=== PATIENT | male | born 1975 | race Two or more races ===

== ENCOUNTER 2016-12-10 20:04 | Inpatient (IN) | payer OTHER ==
[2016-12-10 21:58] VITALS: BMI 25.8
--- NOTE | 2016-12-10 22:15 | HP ---
COWS - Scale Resting Pulse: 1= NE 81-100 Sweatin= Chills/Flushing Restless Observation: 3= Extraneous Movement Pupil Size: 2= Moderately Dilated Bone or Joint Aches: 2= Severe Diffuse Aches Runny Nose/ Eye Tearin= Runny Nose/Eyes GI Upset > 30mins: 3= Vomiting/Diarrhea Tremor Observation: 2= Slight Tremor Visible Yawning Observation: 2= >3x During Session Anxiety or Irritability: 2=Irritable/Anxious Goose Flesh Skin: 0=Smooth Skin COWS Score: 20 CIWA Score - CIWA Score Nausea/Vomitin Muscle Tremors: 3 Anxiety: 3 Agitation: 2 Paroxysmal Sweats: 2 Orientation: 0-Oriented Tacttile Disturbances: 2-Mild Itch/Numbness/Burn Auditory Disturbances: 2-Mild Harshness/Frighten Visual Disturbances: 2-Mild Sensitivity Headache: 2-Mild CIWA-Ar Total Score: 21 Admission ROS BHS - HPI Chief Complaint: I NEED HELP TO STOP USING HEROIN ,ALCOHOL AND COCAINE Allergies/Adverse Reactions: Allergies Allergy/AdvReac Type Severity Reaction Status Date / Time fish derived [Fish derived] Allergy Mild Vomiting Verified 12/10/16 22:02 No Known Drug Allergies Allergy Verified 12/10/16 22:02 History of Present Illness: THIS 41 YEARS OLD MALE WITH HEROIN,ALCOHOL AND COCAINE DEPENDENCE,SEEKING DETOX, LAST TREATMENT IN 05/30 [facility] SEEN IN [facility] LAST NIGHT FOR HEADACHE STATED HAS CT DONE NEGATIVE NICOTINE DEPENDENCE HEPATITIS C WEIGHT LOS ANXIETY,DEPRESSION,INSOMNIA LONGEST PERIOD OF SOBRIETY 18 MONTHS Exam Limitations: No Limitations - Ebola screening Have you traveled outside of the country in the last 21 days: No (N) Have you had contact with anyone from an Ebola affected area: No Have you been sick,other than usual withdrawal symptoms: No Do you have a fever: No - Review of Systems Constitutional: Chills, Loss of Appetite, Malaise, Night Sweats, Changes in sleep, Unintentional Wgt. Loss EENT: reports: Tearing, Nose Congestion Respiratory: reports: No Symptoms reported Cardiac: reports: No Symptoms Reported GI: reports: Diarrhea, Nausea, Poor Appetite, Vomiting : reports: No Symptoms Reported Musculoskeletal: reports: Back Pain, Joint Pain, Muscle Pain, Joint Stiffness Integumentary: reports: Dryness Neuro: reports: Headache, Tremors Endocrine: reports: No Symptoms Reported Hematology: reports: No Symptoms Reported Psychiatric: reports: No Sypmtoms Reported, Judgement Intact, Mood/Affect Appropiate, Orientated x3 (INSOMNIA), Anxious, Depressed Patient History - Patient Medical History Hx Anemia: No Hx Asthma: No Hx Chronic Obstructive Pulmonary Disease (COPD): No Hx Cancer: No Hx Cardiac Disorders: No Hx Congestive Heart Failure: No Hx Hypertension: No Hx Hypercholesterolemia: No Hx Pacemaker: No HX Cerebrovascular Accident: No Hx Seizures: No Hx Dementia: No Hx Diabetes: No Hx Gastrointestinal Disorders: No Hx Liver Disease: No Hx Genitourinary Disorders: No Hx Sexually Transmitted Disorders: No Hx Renal Disease (ESRD): No Hx Thyroid Disease: No Hx Human Immunodeficiency Virus (HIV): No (LAST 2015 NEGATIVE) Hx Hepatitis C: Yes (2009) Hx Depression: Yes Hx Suicide Attempt: No Hx Bipolar Disorder: No Hx Schizophrenia: No - Patient Surgical History Past Surgical History: No Hx Neurologic Surgery: No Hx Cataract Extraction: No Hx Cardiac Surgery: No Hx Lung Surgery: Yes (R pneumothorax in [facility] in 2009) Hx Breast Surgery: No Hx Breast Biopsy: No Hx Abdominal Surgery: No Hx Appendectomy: No Hx Cholecystectomy: No Hx Genitourinary Surgery: No Hx Section: No Hx Orthopedic Surgery: No Anesthesia Reaction: No - PPD History Previous Implant?: Yes Documented Results: Negative w/o proof Implanted On Prior [facility] Admission?: Yes Date: 05/22/14 Results: 0 mm PPD to be Administered?: Yes - Smoking Cessation Smoking history: Current every day smoker Have you smoked in the past 12 months: Yes Aproximately how many cigarettes per day: 20 Cigars Per Day: 0 Hx Chewing Tobacco Use: No Initiated information on smoking cessation: Yes 'Breaking Loose' booklet given: 12/10/16 - Substance & Tx. History Hx Alcohol Use: Yes Hx Substance Use: Yes Substance Use Type: Alcohol, Cocaine, Heroin Hx Substance Use Treatment: Yes ([facility] 05/2014) - Substances Abused Heroin Route: Injection Frequency: Daily Amount used: 20 BAGS Age of first use: 30 Date of Last Use: 12/10/16 Alcohol Route: Oral Frequency: Daily Amount used: 1PINT OF VODKA/10 OF 24 OZS OF BEER Age of first use: 13 Date of Last Use: 12/10/16 Cocaine Route: Smoking Frequency: 1-2 times per week Amount used: 20$ Age of first use: 16 Date of Last Use: 12/09/16 Family Disease History - Family Disease History Family History: Denies Family Disease History: Diabetes: Father (alcoholic and diabetes ), Other: Father Admission Physical Exam [facility] - Vital Signs Vital Signs: Vital Signs - 24 hr 12/10/16 21:50 Temperature 98.0 F Pulse Rate 84 Blood Pressure 133/75 - Physical General Appearance: Yes: Moderate Distress, Tremorous, Irritable, Sweating HEENTM: Yes: Normal ENT Inspection, CHELSIE, Pharynx Normal Respiratory: Yes: Lungs Clear, Normal Breath Sounds, No Respiratory Distress, Surgical Scar (S/P PNEUMOTHORAX RIGHT) Neck: Yes: Within Normal Limits, Supple, Trachea in good position Breast: Yes: Within Normal Limits Cardiology: Yes: Within Normal Limits, Regular Rhythm, Regular Rate, S1, S2 Abdominal: Yes: Normal Bowel Sounds, Non Tender, Soft, Organomegaly Genitourinary: Yes: Within Normal Limits Back: Yes: Muscle Spasm Musculoskeletal: Yes: full range of Motion, Back pain, Muscle Pain Extremities: Yes: Within Normal Limits, Normal Range of Motion, Tremors Neurological: Yes: 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 intact, Alert, Motor Strength 5/5 Integumentary: Yes: Dry, Track Guevara Lymphatic: Yes: Within Normal Limits - Diagnostic (1) Opioid dependence with withdrawal Current Visit: Yes Status: Acute (2) Alcohol dependence with uncomplicated withdrawal Current Visit: Yes Status: Acute (3) Cocaine dependence Current Visit: Yes Status: Acute (4) Weight loss Current Visit: Yes Status: Acute (5) Hepatitis C Current Visit: Yes Status: Acute (6) Insomnia secondary to depression with anxiety Current Visit: Yes Status: Acute (7) Pneumothorax, right Current Visit: Yes Status: Acute Cleared for Admission [facility] - Detox or Rehab [facility] Level of Care: Medically Managed Detox Regimen/Protocol: Methadone/Librium [facility] Breath Alcohol Content Breath Alcohol Content: 0.013 Urine Drug Screen - Results Drug Screen Negative: No Urine Drug Screen Results: HEATH-Cocaine, OPI-Opiates
[2016-12-10] MEDS ORDERED: chlordiazePOXIDE HCL 25 MG CAPSULE PO ONE (22:26)
[2016-12-10] MEDS ORDERED: METHADONE HCL 10 MG TABLET (FOR DETOX USE ONLY) PO ONE ×2 (22:26→23:00)
[2016-12-10] MEDS ORDERED: MENTHOL/PHENOL 1 EACH UD MM PRN (22:26)
[2016-12-10] MEDS ORDERED: hydrOXYzine PAMOATE 50 MG CAPSULE (FP) PO PRN (22:26)
[2016-12-10] MEDS ORDERED: IBUPROFEN 400 MG TABLET (FP) PO PRN (22:26)
[2016-12-10] MEDS ORDERED: chlordiazePOXIDE HCL 25 MG CAPSULE PO PRN (22:26)
[2016-12-10] MEDS ORDERED: ACETAMINOPHEN 325 MG TABLET (FP) PO PRN (22:26)
[2016-12-10] MEDS ORDERED: P-EPHED 60MG/TRIPROLIDI 2.5MG TABLET PO PRN (22:26)
[2016-12-10] MEDS ORDERED: MAG HYDROX/AL HYDROX/SIMETH 30 ML UNIT-DOSE CUP PO PRN (22:26)
[2016-12-10] MEDS ORDERED: MAGNESIUM CITRATE 300 ML BOTTLE PO PRN (22:26)
[2016-12-10] MEDS ORDERED: LOPERAMIDE HCL 2 MG CAPSULE PO PRN (22:26)
[2016-12-10] MEDS ORDERED: NICOTINE POLACRILEX 2 MG GUM BC PRN (22:26)
[2016-12-10] MEDS ORDERED: diphenhydrAMINE HCL 50 MG CAPSULE PO PRN (22:26)
[2016-12-10] MEDS ORDERED: MAGNESIUM HYDROX 2400MG/30ML ORAL SUSPENSION 30 ML CUP PO PRN (22:26)
[2016-12-10] MEDS: chlordiazePOXIDE HCL 25 MG CAPSULE PO SCH (23:05)
[2016-12-11] MEDS: chlordiazePOXIDE HCL 25 MG CAPSULE PO SCH ×4 (06:10→22:22)
[2016-12-11] MEDS: CYCLOBENZAPRINE HCL 10 MG TABLET (FP) PO PRN (06:10)
[2016-12-11 09:50] LABS: MCH 27.2 pg (25.7-33.7); MCHC 33.2 g/dl (32.0-35.9); MEAN CELL VOLUME 82.1 fl (80-96); MEAN PLT VOLUME 10.4 fl (7.5-11.1); PLATELET COUNT 148 K/MM3 (134-434); RDW 14.1 % (11.9-15.9); WHITE BLOOD COUNT 7.4 K/mm3 (4.0-10.0)
[2016-12-11] MEDS ORDERED: METHADONE HCL 10 MG TABLET (FOR DETOX USE ONLY) PO SCH (10:00)
[2016-12-11 10:12] LABS: ALBUMIN 3.3 g/dl (3.4-5.0); ANION GAP 5 (8-16); BILIRUBIN,TOTAL 0.4 mg/dL (0.2-1.0); CALCIUM 8.8 mg/dL (8.5-10.1); CO2 32 mmol/L (21-32); CREATININE 1.1 mg/dL (0.7-1.3); GLUCOSE,RANDOM 109 mg/dL (74-106); SGOT/AST 36 U/L (15-37); SGPT/ALT 38 U/L (12-78); TOT PROT 7.4 g/dl (6.4-8.2)
[2016-12-11 10:13] LABS: ALK PHOS 83 U/L (45-117)
[2016-12-11] MEDS: cloNIDine HCL 0.1 MG TABLET PO SCH ×2 (10:30→22:21)
[2016-12-11] MEDS: NICOTINE 21 MG/24 HOURS TOPICAL PATCH TD SCH (10:30)
[2016-12-11] MEDS: PRENATAL VITAMINS W/ FOLIC ACID TABLET (FP) PO SCH (10:30)
--- NOTE | 2016-12-11 10:42 | PN ---
[facility] CIWA - CIWA Score Nausea/Vomitin-No Nausea/No Vomiting Muscle Tremors: 4-Moderate,w/Arms Extend Anxiety: 4-Mod. Anxious/Guarded Agitation: 3 Paroxysmal Sweats: 1-Minimal Palms Moist Orientation: 0-Oriented Tacttile Disturbances: 3-Moderate Itch/Numb/Burn Auditory Disturbances: 0-None Visual Disturbances: 0-None Headache: 0-None Present CIWA-Ar Total Score: 15 [facility]HS COWS - Scale Resting Pulse: 1= ID 81-100 Sweatin= Chills/Flushing Restless Observation: 3= Extraneous Movement Pupil Size: 2= Moderately Dilated Bone or Joint Aches: 4=Acute Joint/Muscle Pain Runny Nose/ Eye Tearin= None GI Upset > 30mins: 1= Stomach Cramp Tremor Observation of Outstretched Hands: 2= Slight Tremor Visible Yawning Observation: 2= >3x During Session Anxiety or Irritability: 2=Irritable/Anxious Goose Flesh Skin: 0=Smooth Skin COWS Score: 18 [facility] Progress Note (SOAP) Subjective: ANXIETY,SWEATS, TREMORS, FATIGUE Objective: 12/11/16 10:41 Vital Signs Temperature 98.2 F 12/11/16 10:37 Pulse Rate 81 12/11/16 10:37 Respiratory Rate 18 12/11/16 10:37 Blood Pressure 109/75 12/11/16 10:37 O2 Sat by Pulse Oximetry (%) Laboratory Last Values WBC 7.4 K/mm3 (4.0-10.0) 12/11/16 08:00 RBC 5.26 M/mm3 (4.00-5.60) 12/11/16 08:00 Hgb 14.3 GM/dL (11.7-16.9) 12/11/16 08:00 Hct 43.2 % (35.4-49) 12/11/16 08:00 MCV 82.1 fl (80-96) 12/11/16 08:00 MCH 27.2 pg (25.7-33.7) 12/11/16 08:00 MCHC 33.2 g/dl (32.0-35.9) 12/11/16 08:00 RDW 14.1 % (11.9-15.9) 12/11/16 08:00 Plt Count 148 K/MM3 (134-434) 12/11/16 08:00 MPV 10.4 fl (7.5-11.1) 12/11/16 08:00 Assessment: 12/11/16 10:41 WITHDRAWAL SX Plan: CONTINUE DETOX
[2016-12-11 11:24] LABS: HIV 1 & 2 AB NEGATIVE; HIV 1 AGp24 NEGATIVE
--- NOTE | 2016-12-11 11:37 | CONSULT ---
[facility] Psychiatric Consult - Data Date of interview: 12/11/16 Admission source: [facility] Identifying data: This is one of multiple admissions to [facility] for this 41 y/ o male seeking detox treatment on for alcohol,heroin and cocaine dependence.Patient is a ,father of one,domiciled,unemployed and currently deprived of financial assistance. Substance Abuse History: Discussed with the patient.Mr Ram validates this report. Smoking Cessation. Smoking history: Current every day smoker. Have you smoked in the past 12 months: Yes. Aproximately how many cigarettes per day : 20. Cigars Per Day: 0. Hx Chewing Tobacco Use: No. Initiated information on smoking cessation: Yes. 'Breaking Loose' booklet given: 12/10/16. - Substance & Tx. History. Hx Alcohol Use: Yes. Hx Substance Use: Yes. Substance Use Type: Alcohol, Cocaine, Heroin. Hx Substance Use Treatment: Yes ( [facility] 05/2014). - Substances Abused. Heroin. Route: Injection. Frequency: Daily. Amount used: 20 BAGS. Age of first use: 30. Date of Last Use: . Alcohol. Route: Oral. Frequency: Daily. Amount used: 1PINT OF VODKA/ 10 OF 24 OZS OF BEER. Age of first use: 13. Date of Last Use: 12/10/16. Cocaine. Route: Smoking. Frequency: 1-2 times per week. Amount used: 20$. Age of first use: 16. Date of Last Use: 12/09/16 Medical History: Hepatitis C and a history of right pneumothorax (treated at [facility] in 2009). Psychiatric History: No reported history of psychiatric hospitalizations.Patient declares that he was prescribed trazodone (dose uncertain) for insomnia.No history of OPD care.Mr Melgar denies history of suicide attempts. Physical/Sexual Abuse/Trauma History: None. Additional Comment: Urine Drug Screen Results: HEATH-Cocaine, OPI-Opiates.Noted. Mental Status Exam - Mental Status Exam Alert and Oriented to: Time, Place, Person Cognitive Function: Good Patient Appearance: Well Groomed Mood: Hopeful Affect: Appropriate, Normal Range Patient Behavior: Fatigued, Appropriate, Cooperative Speech Pattern: Clear Voice Loudness: Normal Thought Process: Intact, Goal Oriented Thought Disorder: Not Present Hallucinations: Denies Suicidal Ideation: Denies Homicidal Ideation: Denies Insight/Judgement: Poor Sleep: Poorly, Difficulty falling asleep Appetite: Good Muscle strength/Tone: Normal Gait/Station: Normal Psychiatric Findings - Problem List ([place] 1, 2,3) (1) Alcohol dependence with uncomplicated withdrawal Current Visit: Yes Status: Acute (2) Cocaine dependence, uncomplicated Current Visit: Yes Status: Acute (3) Opioid dependence with withdrawal Current Visit: Yes Status: Acute (4) Nicotine dependence Current Visit: Yes Status: Acute Qualifiers: Nicotine product type: cigarettes Substance use status: in withdrawal Qualified Code(s): F17.213 - Nicotine dependence, cigarettes, with withdrawal (5) Drug-induced mood disorder Current Visit: Yes Status: Acute (6) Hepatitis C Current Visit: Yes Status: Chronic Qualifiers: Viral hepatitis chronicity: chronic Hepatic coma status: without hepatic coma Qualified Code(s): B18.2 - Chronic viral hepatitis C (7) Insomnia Current Visit: Yes Status: Acute - Initial Treatment Plan Initial Treatment Plan: Psychoeducation.Detoxification.Medication : trazodone 50 mg po hs (patient's request).Made aware of risk of priapism and instructed to alert staff if occurrence of erectile abnormalities (prolonged/painful erection).Patient is in agreement with thiscareplan.Observation.
[2016-12-11] MEDS: guaiFENesin/D-METHORPHAN HB 10 ML UNIT-DOSE CUPS PO PRN ×2 (17:38→23:33)
[2016-12-11] MEDS: THIAMINE HCL 100 MG TABLET (FP) PO SCH (22:21)
[2016-12-11] MEDS: traZODone HCL 50 MG TABLET (FP) PO SCH (22:22)
[2016-12-12] MEDS: CYCLOBENZAPRINE HCL 10 MG TABLET (FP) PO PRN ×2 (05:59→22:10)
[2016-12-12] MEDS: chlordiazePOXIDE HCL 25 MG CAPSULE PO SCH ×3 (05:59→17:20)
--- NOTE | 2016-12-12 09:53 | EKG ---
Test Reason : Blood Pressure : / mmHG Vent. Rate : 088 BPM Atrial Rate : 088 BPM P-R Int : 144 ms QRS Dur : 078 ms QT Int : 354 ms P-R-T Axes : 067 042 056 degrees QTc Int : 428 ms NORMAL SINUS RHYTHM NORMAL ECG NO PREVIOUS ECGS AVAILABLE Confirmed by МАРИНА WEST, MARLENY ([id number]) on 12/12/2016 9:53:01 AM Referred By: Vu Yeager Confirmed By:MARLENY PARISH MD
[2016-12-12] MEDS: cloNIDine HCL 0.1 MG TABLET PO SCH ×2 (10:19→22:11)
[2016-12-12] MEDS: PRENATAL VITAMINS W/ FOLIC ACID TABLET (FP) PO SCH (10:19)
[2016-12-12] MEDS: METHADONE HCL 5 MG TABLET (FOR DETOX USE ONLY) PO SCH (10:19)
[2016-12-12] MEDS: NICOTINE 21 MG/24 HOURS TOPICAL PATCH TD SCH (10:20)
--- NOTE | 2016-12-12 13:32 | PN ---
[facility] CIWA - CIWA Score Nausea/Vomitin-Mild Nausea/No Vomiting Muscle Tremors: 3 Anxiety: 4-Mod. Anxious/Guarded Agitation: 3 Paroxysmal Sweats: 3 Orientation: 0-Oriented Tacttile Disturbances: 0-None Auditory Disturbances: 0-None Visual Disturbances: 0-None Headache: 0-None Present CIWA-Ar Total Score: 14 S COWS - Scale Resting Pulse: 0= MO 80 or Below Sweatin=Flushed/Facial Moisture Restless Observation: 1= Difficult to Sit Still Pupil Size: 0= Normal to Room Light Bone or Joint Aches: 2= Severe Diffuse Aches Runny Nose/ Eye Tearin= Runny Nose/Eyes GI Upset > 30mins: 2= Nausea/Diarrhea Tremor Observation of Outstretched Hands: 2= Slight Tremor Visible Yawning Observation: 1= 1-2x During Session Anxiety or Irritability: 2=Irritable/Anxious Goose Flesh Skin: 0=Smooth Skin COWS Score: 14 [facility] Progress Note (SOAP) Subjective: Anxiety,tremors,sweating,body aches,restless. Objective: 12/12/16 13:31 Vital Signs - 8 hr 12/12/16 12/12/16 06:36 09:34 Temperature 97 F L 97.2 F L Pulse Rate 72 79 Respiratory 18 16 Rate Blood Pressure 112/74 105/69 Laboratory Last Values WBC 7.4 K/mm3 (4.0-10.0) 12/11/16 08:00 RBC 5.26 M/mm3 (4.00-5.60) 12/11/16 08:00 Hgb 14.3 GM/dL (11.7-16.9) 12/11/16 08:00 Hct 43.2 % (35.4-49) 12/11/16 08:00 MCV 82.1 fl (80-96) 12/11/16 08:00 MCH 27.2 pg (25.7-33.7) 12/11/16 08:00 MCHC 33.2 g/dl (32.0-35.9) 12/11/16 08:00 RDW 14.1 % (11.9-15.9) 12/11/16 08:00 Plt Count 148 K/MM3 (134-434) 12/11/16 08:00 MPV 10.4 fl (7.5-11.1) 12/11/16 08:00 Sodium 139 mmol/L (136-145) 12/11/16 07:00 Potassium 4.8 mmol/L (3.5-5.1) 12/11/16 07:00 Chloride 102 mmol/L (98-107) 12/11/16 07:00 Carbon Dioxide 32 mmol/L (21-32) 12/11/16 07:00 Anion Gap 5 (8-16) L 12/11/16 07:00 BUN 8 mg/dL (7-18) 12/11/16 07:00 Creatinine 1.1 mg/dL (0.7-1.3) D 12/11/16 07:00 Creat Clearance w eGFR > 60 (>60) 12/11/16 07:00 Random Glucose 109 mg/dL (74-106) H 12/11/16 07:00 Calcium 8.8 mg/dL (8.5-10.1) 12/11/16 07:00 Total Bilirubin 0.4 mg/dL (0.2-1.0) 12/11/16 07:00 AST 36 U/L (15-37) 12/11/16 07:00 ALT 38 U/L (12-78) D 12/11/16 07:00 Alkaline Phosphatase 83 U/L (45-117) 12/11/16 07:00 Total Protein 7.4 g/dl (6.4-8.2) 12/11/16 07:00 Albumin 3.3 g/dl (3.4-5.0) L 12/11/16 07:00 RPR Titer Nonreactive (NONREACTIVE) 12/11/16 07:00 HIV 1&2 Antibody Screen Negative 12/11/16 08:30 HIV P24 Antigen Negative 12/11/16 08:30 labs noted Assessment: 12/12/16 13:31 Withdrawal sx. Plan: Continue detox
[2016-12-12] MEDS: guaiFENesin/D-METHORPHAN HB 10 ML UNIT-DOSE CUPS PO PRN ×2 (17:20→22:44)
[2016-12-12] MEDS: chlordiazePOXIDE 5 MG CAPSULE PO SCH (22:10)
[2016-12-12] MEDS: traZODone HCL 50 MG TABLET (FP) PO SCH (22:10)
[2016-12-12] MEDS: THIAMINE HCL 100 MG TABLET (FP) PO SCH (22:10)
[2016-12-13] MEDS: CYCLOBENZAPRINE HCL 10 MG TABLET (FP) PO PRN (06:03)
[2016-12-13] MEDS: chlordiazePOXIDE 5 MG CAPSULE PO SCH ×3 (06:04→17:13)
[2016-12-13] MEDS: guaiFENesin/D-METHORPHAN HB 10 ML UNIT-DOSE CUPS PO PRN ×3 (06:04→22:58)
[2016-12-13] MEDS: PRENATAL VITAMINS W/ FOLIC ACID TABLET (FP) PO SCH (10:33)
[2016-12-13] MEDS: METHADONE HCL 5 MG TABLET (FOR DETOX USE ONLY) PO SCH (10:33)
[2016-12-13] MEDS: cloNIDine HCL 0.1 MG TABLET PO SCH ×2 (10:34→22:45)
[2016-12-13] MEDS: NICOTINE 21 MG/24 HOURS TOPICAL PATCH TD SCH (10:35)
--- NOTE | 2016-12-13 11:59 | PN ---
[facility] Progress Note (SOAP) Subjective: Tremors, Anxious, H/A, Fatigue. Objective: PT. A & O X 2 (DISORIENTED ABOUT DAY / DATE). PT. OBSERVED AMBULATING ON UNIT. NO ACUTE DISTRESS. 12/13/16 11:57 Vital Signs Temperature 97.5 F L 12/13/16 09:30 Pulse Rate 76 12/13/16 09:30 Respiratory Rate 18 12/13/16 09:30 Blood Pressure 107/70 12/13/16 09:30 O2 Sat by Pulse Oximetry (%) Laboratory Tests 12/11/16 12/11/16 12/11/16 07:00 07:00 08:00 WBC 7.4 RBC 5.26 Hgb 14.3 Hct 43.2 MCV 82.1 MCH 27.2 MCHC 33.2 RDW 14.1 Plt Count 148 MPV 10.4 Sodium 139 Potassium 4.8 Chloride 102 Carbon Dioxide 32 Anion Gap 5 L BUN 8 Creatinine 1.1 D Creat Clearance w eGFR > 60 Random Glucose 109 H Calcium 8.8 Total Bilirubin 0.4 AST 36 ALT 38 D Alkaline Phosphatase 83 Total Protein 7.4 Albumin 3.3 L RPR Titer Nonreactive HIV 1&2 Antibody Screen HIV P24 Antigen 12/11/16 08:30 WBC RBC Hgb Hct MCV MCH MCHC RDW Plt Count MPV Sodium Potassium Chloride Carbon Dioxide Anion Gap BUN Creatinine Creat Clearance w eGFR Random Glucose Calcium Total Bilirubin AST ALT Alkaline Phosphatase Total Protein Albumin RPR Titer HIV 1&2 Antibody Screen Negative HIV P24 Antigen Negative LABS NOTED. UA RESULTS PENDING. 12/13/16 11:58 Assessment: 12/13/16 11:57 WITHDRAWAL SYMPTOMS. Plan: CONTINUE DETOX.
[2016-12-13] MEDS: traZODone HCL 50 MG TABLET (FP) PO SCH (22:45)
[2016-12-13] MEDS: chlordiazePOXIDE HCL 10 MG CAPSULE PO SCH (22:45)
[2016-12-13] MEDS: THIAMINE HCL 100 MG TABLET (FP) PO SCH (22:45)
[2016-12-14] MEDS: CYCLOBENZAPRINE HCL 10 MG TABLET (FP) PO PRN (05:18)
[2016-12-14] MEDS: chlordiazePOXIDE HCL 10 MG CAPSULE PO SCH (05:18)
[2016-12-14 06:25] VITALS: BP 99/64; PULSE 64; TEMP 96.6
[2016-12-14] MEDS ORDERED: METHADONE HCL 10 MG TABLET (FOR DETOX USE ONLY) PO SCH (10:00)
--- NOTE | 2016-12-14 11:02 | DS ---
[facility] Detox Discharge Summary Admission Date: 12/10/16 Discharge Date: 12/14/16 - History Present History: Alcohol Dependence, Cocaine Dependence, Opioid Dependence Pertinent Past History: Hep. C - Physical Exam Results Vital Signs: Vital Signs Temperature 96.6 F L 12/14/16 06:25 Pulse Rate 64 12/14/16 06:25 Respiratory Rate 16 12/14/16 06:30 Blood Pressure 99/64 12/14/16 06:25 O2 Sat by Pulse Oximetry (%) Pertinent Admission Physical Exam Findings: Withdrawal sx Laboratory Last Values WBC 7.4 K/mm3 (4.0-10.0) 12/11/16 08:00 RBC 5.26 M/mm3 (4.00-5.60) 12/11/16 08:00 Hgb 14.3 GM/dL (11.7-16.9) 12/11/16 08:00 Hct 43.2 % (35.4-49) 12/11/16 08:00 MCV 82.1 fl (80-96) 12/11/16 08:00 MCH 27.2 pg (25.7-33.7) 12/11/16 08:00 MCHC 33.2 g/dl (32.0-35.9) 12/11/16 08:00 RDW 14.1 % (11.9-15.9) 12/11/16 08:00 Plt Count 148 K/MM3 (134-434) 12/11/16 08:00 MPV 10.4 fl (7.5-11.1) 12/11/16 08:00 Sodium 139 mmol/L (136-145) 12/11/16 07:00 Potassium 4.8 mmol/L (3.5-5.1) 12/11/16 07:00 Chloride 102 mmol/L (98-107) 12/11/16 07:00 Carbon Dioxide 32 mmol/L (21-32) 12/11/16 07:00 Anion Gap 5 (8-16) L 12/11/16 07:00 BUN 8 mg/dL (7-18) 12/11/16 07:00 Creatinine 1.1 mg/dL (0.7-1.3) D 12/11/16 07:00 Creat Clearance w eGFR > 60 (>60) 12/11/16 07:00 Random Glucose 109 mg/dL (74-106) H 12/11/16 07:00 Calcium 8.8 mg/dL (8.5-10.1) 12/11/16 07:00 Total Bilirubin 0.4 mg/dL (0.2-1.0) 12/11/16 07:00 AST 36 U/L (15-37) 12/11/16 07:00 ALT 38 U/L (12-78) D 12/11/16 07:00 Alkaline Phosphatase 83 U/L (45-117) 12/11/16 07:00 Total Protein 7.4 g/dl (6.4-8.2) 12/11/16 07:00 Albumin 3.3 g/dl (3.4-5.0) L 12/11/16 07:00 RPR Titer Nonreactive (NONREACTIVE) 12/11/16 07:00 HIV 1&2 Antibody Screen Negative 12/11/16 08:30 HIV P24 Antigen Negative 12/11/16 08:30 Labs noted - Treatment Patient has Accepted a Rehab Referral to: Self help groups - Medication Discharge Medications: Ambulatory Orders Trazodone HCl [Desyrel -] 50 mg PO HS #30 tablet 05/20/14 Trazodone HCl [Desyrel -] 50 mg PO HS #30 tablet 12/11/16 - Diagnosis (1) Alcohol dependence with uncomplicated withdrawal Status: Acute (2) Cocaine dependence, uncomplicated Status: Acute (3) Drug-induced mood disorder Status: Acute (4) Insomnia Status: Acute (5) Nicotine dependence Status: Acute Qualifiers: Nicotine product type: cigarettes Substance use status: in withdrawal Qualified Code(s): F17.213 - Nicotine dependence, cigarettes, with withdrawal (6) Opioid dependence with withdrawal Status: Acute (7) Hepatitis C Status: Chronic Qualifiers: Viral hepatitis chronicity: chronic Hepatic coma status: without hepatic coma Qualified Code(s): B18.2 - Chronic viral hepatitis C - AMA Did Patient Leave Against Medical Advice: Yes
[2016-12-15] MEDS ORDERED: METHADONE HCL 5 MG TABLET (FOR DETOX USE ONLY) PO SCH (06:00)
== END 2016-12-14 09:57 | disposition left against medical advice (07) | DRG 770 ==
LOC: YASAS 20:04 → Y3N 22:07
PROVIDERS: ADMIT Internal Medicine; ATTEND Internal Medicine
PROC: HZ2ZZZZ Detoxification Services for Substance Abuse Treatment (ICD-10-PCS; principal; 2016-12-10)
DX: F11.23 Opioid dependence with withdrawal (principal); F10.230 Alcohol dependence with withdrawal, uncomplicated; F17.213 Nicotine dependence, cigarettes, with withdrawal; F19.24 Other psychoactive substance dependence with psychoactive substance-induced mood disorder; G47.00 Insomnia, unspecified; F32.9 Major depressive disorder, single episode, unspecified; B18.2 Chronic viral hepatitis C; Z87.09 Personal history of other diseases of the respiratory system
CPT/HCPCS: 36415; 80053; 85027; 86593; 87389; 93005; 93010

== ENCOUNTER 2017-02-20 13:56 | Inpatient (IN) | payer OTHER ==
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
[2017-02-20 17:45] VITALS: BMI 26.5
--- NOTE | 2017-02-20 19:08 | HP ---
COWS - Scale Resting Pulse: 1= [place] 81-100 Sweatin= Chills/Flushing Restless Observation: 3= Extraneous Movement Pupil Size: 0= Normal to Room Light Bone or Joint Aches: 2= Severe Diffuse Aches Runny Nose/ Eye Tearin= Runny Nose/Eyes GI Upset > 30mins: 1= Stomach Cramp Tremor Observation: 2= Slight Tremor Visible Yawning Observation: 0= None Anxiety or Irritability: 2=Irritable/Anxious Goose Flesh Skin: 0=Smooth Skin COWS Score: 14 CIWA Score - CIWA Score Nausea/Vomitin-No Nausea/No Vomiting Muscle Tremors: 4-Moderate,w/Arms Extend Anxiety: 4-Mod. Anxious/Guarded Agitation: 4-Moderately Restless Paroxysmal Sweats: 1-Minimal Palms Moist Orientation: 0-Oriented Tacttile Disturbances: 0-None Auditory Disturbances: 0-None Visual Disturbances: 0-None Headache: 1-Very Mild CIWA-Ar Total Score: 14 Admission ROS BHS - HPI Chief Complaint: withdrawal sx Allergies/Adverse Reactions: Allergies Allergy/AdvReac Type Severity Reaction Status Date / Time fish derived [Fish derived] Allergy Mild Vomiting Verified 02/20/17 18:27 No Known Drug Allergies Allergy Verified 02/20/17 18:27 History of Present Illness: 41 years old male with long history of alcohol heroin nicotine dependence has hepatitis c and depression is admitted to detox Exam Limitations: No Limitations - Ebola screening Have you traveled outside of the country in the last 21 days: No (N) Have you had contact with anyone from an Ebola affected area: No Have you been sick,other than usual withdrawal symptoms: No Do you have a fever: No - Review of Systems Constitutional: Changes in sleep, Weight Stable EENT: reports: Blurred Vision (need eye glasses) Respiratory: reports: No Symptoms reported Cardiac: reports: No Symptoms Reported GI: reports: Poor Fluid Intake, Abdominal cramping : reports: No Symptoms Reported Musculoskeletal: reports: Back Pain, Joint Pain, Muscle Pain, Neck Pain Integumentary: reports: Change in Color (both inner elbows) Neuro: reports: Tremors Endocrine: reports: No Symptoms Reported Hematology: reports: No Symptoms Reported Psychiatric: reports: Judgement Intact, Orientated x3, Anxious, Depressed Other Systems: Reviewed and Negative Patient History - Patient Medical History Hx Anemia: No Hx Asthma: No Hx Chronic Obstructive Pulmonary Disease (COPD): No Hx Cancer: No Hx Cardiac Disorders: No Hx Congestive Heart Failure: No Hx Hypertension: No Hx Hypercholesterolemia: No Hx Pacemaker: No HX Cerebrovascular Accident: No Hx Seizures: No Hx Dementia: No Hx Diabetes: No Hx Gastrointestinal Disorders: No Hx Liver Disease: No (HEP C) Hx Genitourinary Disorders: No Hx Sexually Transmitted Disorders: No Hx Renal Disease (ESRD): No Hx Thyroid Disease: No Hx Human Immunodeficiency Virus (HIV): No (LAST 2015 NEGATIVE) Hx Hepatitis C: Yes (2009) Hx Depression: Yes Hx Suicide Attempt: No Hx Bipolar Disorder: No Hx Schizophrenia: No - Patient Surgical History Past Surgical History: Yes Hx Neurologic Surgery: No Hx Cataract Extraction: No Hx Cardiac Surgery: No Hx Lung Surgery: Yes (R pneumothorax in [facility] in 2009) Hx Breast Surgery: No Hx Breast Biopsy: No Hx Abdominal Surgery: No Hx Appendectomy: No Hx Cholecystectomy: No Hx Genitourinary Surgery: No Hx Orthopedic Surgery: No Anesthesia Reaction: No - PPD History Previous Implant?: Yes Documented Results: Negative w/proof Implanted On Prior R Admission?: Yes Date: 12/12/16 Results: 0 mm PPD to be Administered?: No - Smoking Cessation Smoking history: Current every day smoker Have you smoked in the past 12 months: Yes Aproximately how many cigarettes per day: 10 Cigars Per Day: 0 Hx Chewing Tobacco Use: No Initiated information on smoking cessation: Yes 'Breaking Loose' booklet given: 02/20/17 - Substance & Tx. History Hx Alcohol Use: Yes Hx Substance Use: Yes Substance Use Type: Alcohol, Cocaine, Heroin Hx Substance Use Treatment: Yes (11/2016 [facility]) - Substances Abused Alcohol Route: Oral Frequency: Daily Amount used: 10 beers of 24 oz + 1/2 pint vodka Age of first use: 13 Date of Last Use: 02/20/17 Heroin Route: Injection Frequency: Daily Amount used: 10-12 bags Age of first use: 30 Date of Last Use: 02/20/17 Cocaine Route: Smoking Frequency: 1-2 times per week Amount used: $20 Age of first use: 16 Date of Last Use: 02/19/17 Family Disease History - Family Disease History Family Disease History: Diabetes: Father (alcoholic and diabetes ), Other: Father Admission Physical Exam [facility] - Vital Signs Vital Signs: Vital Signs - 24 hr 02/20/17 17:15 Temperature 97.8 F Pulse Rate 92 H Respiratory 18 Rate Blood Pressure 146/80 - Physical General Appearance: Yes: Appropriately Dressed, Mild Distress, Alcohol on Breath , Thin, Tremorous, Irritable, Sweating, Anxious HEENTM: Yes: Hearing grossly Normal, Normal ENT Inspection, Normocephalic, Normal Voice Respiratory: Yes: Chest Non-Tender, Lungs Clear, Normal Breath Sounds, No Respiratory Distress, No Accessory Muscle Use Neck: Yes: Supple, Trachea in good position Breast: Yes: Breasts Symetrical Cardiology: Yes: Regular Rhythm, S1, S2, Tachycardia Abdominal: Yes: Normal Bowel Sounds, Non Tender, Soft Genitourinary: Yes: Within Normal Limits Back: Yes: Normal Inspection Musculoskeletal: Yes: full range of Motion, Gait Steady, Back pain, Muscle Pain Extremities: Yes: Normal Range of Motion, Non-Tender, Tremors Neurological: Yes: Fully Oriented, Alert, Motor Strength 5/5, Normal Response, Depressed Affect Integumentary: Yes: Warm, Track Gue[place]a Lymphatic: Yes: Within Normal Limits - Diagnostic (1) Depression (emotion) Current Visit: Yes Status: Suspected Qualifiers: Depression Type: dysthymia Qualified Code(s): F34.1 - Dysthymic disorder (2) Alcohol dependence with uncomplicated withdrawal Current Visit: Yes Status: Acute (3) Cocaine dependence, uncomplicated Current Visit: Yes Status: Chronic (4) Nicotine dependence Current Visit: Yes Status: Acute Qualifiers: Nicotine product type: cigarettes Substance use status: in withdrawal Qualified Code(s): F17.213 - Nicotine dependence, cigarettes, with withdrawal (5) Opioid dependence with withdrawal Current Visit: Yes Status: Acute (6) Hepatitis C Current Visit: Yes Status: Chronic Qualifiers: Viral hepatitis chronicity: chronic Hepatic coma status: without hepatic coma Qualified Code(s): B18.2 - Chronic viral hepatitis C Cleared for Admission [facility] - Detox or Rehab [facility] Level of Care: Medically Managed Detox Regimen/Protocol: Methadone/Librium [facility] Breath Alcohol Content Breath Alcohol Content: 0.020 Urine Drug Screen - Results Drug Screen Negative: No Urine Drug Screen Results: HEATH-Cocaine, OPI-Opiates, MET-Methamphetamine
[2017-02-20] MEDS ORDERED: P-EPHED 60MG/TRIPROLIDI 2.5MG TABLET PO PRN (19:11)
[2017-02-20] MEDS ORDERED: MAG HYDROX/AL HYDROX/SIMETH 30 ML UNIT-DOSE CUP PO PRN (19:11)
[2017-02-20] MEDS ORDERED: MAGNESIUM HYDROX 2400MG/30ML ORAL SUSPENSION 30 ML CUP PO PRN (19:11)
[2017-02-20] MEDS ORDERED: MENTHOL/PHENOL 1 EACH UD MM PRN (19:11)
[2017-02-20] MEDS ORDERED: chlordiazePOXIDE HCL 25 MG CAPSULE PO PRN (19:11)
[2017-02-20] MEDS ORDERED: guaiFENesin/D-METHORPHAN HB 10 ML UNIT-DOSE CUPS PO PRN (19:11)
[2017-02-20] MEDS ORDERED: LOPERAMIDE HCL 2 MG CAPSULE PO PRN (19:11)
[2017-02-20] MEDS ORDERED: MAGNESIUM CITRATE 300 ML BOTTLE PO PRN (19:11)
[2017-02-20] MEDS ORDERED: METHADONE HCL 10 MG TABLET (FOR DETOX USE ONLY) PO ONE ×2 (19:11→23:00)
[2017-02-20] MEDS ORDERED: NICOTINE POLACRILEX 2 MG GUM BC PRN (19:11)
[2017-02-20] MEDS ORDERED: ACETAMINOPHEN 325 MG TABLET (FP) PO PRN (19:11)
[2017-02-20] MEDS: THIAMINE HCL 100 MG TABLET (FP) PO SCH (22:22)
[2017-02-20] MEDS: chlordiazePOXIDE HCL 25 MG CAPSULE PO SCH (22:23)
[2017-02-20 23:32] LABS: URINE APPEARANCE CLEAR; URINE BILIRUBIN NEGATIVE (NEGATIVE); URINE BLOOD NEGATIVE (NEGATIVE); URINE COLOR STRAW; URINE GLUCOSE (UA) NEGATIVE (NEGATIVE); URINE KETONE NEGATIVE (NEGATIVE); URINE LEUK ESTERASE NEGATIVE (NEGATIVE); URINE NITRITE NEGATIVE (NEGATIVE); URINE PROTEIN NEGATIVE (NEGATIVE); URINE UROBILINOGEN NEGATIVE mg/dL (0.2-1.0)
[2017-02-21] MEDS: chlordiazePOXIDE HCL 25 MG CAPSULE PO SCH ×4 (05:29→22:40)
--- NOTE | 2017-02-21 07:43 | CONSULT ---
[facility] Psychiatric Consult - Data Date of interview: 02/21/17 Admission source: [facility] Identifying data: This is 41 years old male with no psychiatric hospitalization history intoxicated with: Alcohol, Cocaine, Opioids and Nicotine Substance Abuse History: Smoking history: Current every day smoker. Have you smoked in the past 12 months: Yes. Aproximately how many cigarettes per day: 10. Cigars Per Day: 0. Hx Chewing Tobacco Use: No. Initiated information on smoking cessation: Yes. 'Breaking Loose' booklet given: 02/20/17. - Substance & Tx. History. Hx Alcohol Use: Yes. Hx Substance Use: Yes. Substance Use Type : Alcohol, Cocaine, Heroin. Hx Substance Use Treatment: Yes (11/2016 [facility]) . - Substances Abused. Alcohol. Route: Oral. Frequency: Daily. Amount used: 10 beers of 24 oz + 1/2 pint vodka. Age of first use: 13. Date of Last Use: 02/20/17. Heroin. Route: Injection. Frequency: Daily. Amount used: 10-12 bags. Age of first use: 30. Date of Last Use: 02/20/17. Cocaine. Route: Smoking. Frequency: 1-2 times per week. Amount used: $20. Age of first use: 16. Date of Last Use: 02/19/17 Medical History: HepC+ Psychiatric History: PATIENT REPORTS HISTORY OF DEPRESSION, DENIES SUICIDAL HISTORY, REPORTS TAKING PRIOR TO ADMISSION: TRAZODONE 100MG PO QHS Physical/Sexual Abuse/Trauma History: Denies Additional Comment: TRAZODONE 100MG PO QHS Mental Status Exam - Mental Status Exam Alert and Oriented to: Person Cognitive Function: Fair Patient Appearance: Unkempt Mood: Sad Affect: Flat Patient Behavior: Sedated Voice Loudness: Mildly Soft/Quiet Thought Process: Circumstantial Thought Disorder: Being Controlled Hallucinations: Denies Suicidal Ideation: Denies Homicidal Ideation: Denies Insight/Judgement: Fair Sleep: Difficulty falling asleep Appetite: Weight loss Muscle strength/Tone: Mild Hypotonicity Gait/Station: Shuffling Additional Comments: TRAZODONE 100MG PO QHS Psychiatric Findings - Problem List ([place] 1, 2,3) (1) Alcohol dependence with uncomplicated withdrawal Current Visit: Yes Status: Acute (2) Nicotine dependence Current Visit: Yes Status: Acute Qualifiers: Nicotine product type: cigarettes Substance use status: in withdrawal Qualified Code(s): F17.213 - Nicotine dependence, cigarettes, with withdrawal (3) Opioid dependence with withdrawal Current Visit: Yes Status: Acute (4) Cocaine dependence, uncomplicated Current Visit: Yes Status: Chronic (5) Depression (emotion) Current Visit: Yes Status: Suspected Qualifiers: Depression Type: dysthymia Qualified Code(s): F34.1 - Dysthymic disorder (6) Cocaine dependence Current Visit: No Status: Acute (7) Drug-induced mood disorder Current Visit: No Status: Acute (8) Insomnia secondary to depression with anxiety Current Visit: No Status: Acute (9) Weight loss Current Visit: No Status: Acute
[2017-02-21] MEDS ORDERED: METHADONE HCL 10 MG TABLET (FOR DETOX USE ONLY) PO SCH (10:00)
[2017-02-21 10:13] LABS: MCH 27.4 pg (25.7-33.7); MCHC 32.5 g/dl (32.0-35.9); MEAN CELL VOLUME 84.3 fl (80-96); MEAN PLT VOLUME 10.6 fl (7.5-11.1); PLATELET COUNT 119 K/MM3 (134-434); WHITE BLOOD COUNT 9.5 K/mm3 (4.0-10.0)
[2017-02-21 10:33] LABS: ALBUMIN 3.1 g/dl (3.4-5.0); ALK PHOS 74 U/L (45-117); ANION GAP 7 (8-16); BILIRUBIN,TOTAL 0.7 mg/dL (0.2-1.0); CALCIUM 8.5 mg/dL (8.5-10.1); CO2 29 mmol/L (21-32); GLUCOSE,RANDOM 77 mg/dL (74-106); SGOT/AST 101 U/L (15-37); SGPT/ALT 122 U/L (12-78); TOT PROT 6.6 g/dl (6.4-8.2)
[2017-02-21] MEDS: PRENATAL VITAMINS W/ FOLIC ACID TABLET (FP) PO SCH (10:50)
[2017-02-21] MEDS: NICOTINE 14 MG/24 HOURS TOPICAL PATCH TD SCH (10:50)
--- NOTE | 2017-02-21 11:45 | EKG ---
Test Reason : Blood Pressure : / mmHG Vent. Rate : 065 BPM Atrial Rate : 065 BPM P-R Int : 128 ms QRS Dur : 080 ms QT Int : 402 ms P-R-T Axes : 038 039 039 degrees QTc Int : 418 ms NORMAL SINUS RHYTHM SEPTAL INFARCT , AGE UNDETERMINED ABNORMAL ECG WHEN COMPARED WITH ECG OF 10-DEC-2016 23:08, SEPTAL INFARCT IS NOW PRESENT Confirmed by JOSE HYDE MD ([id number]) on 02/21/2017 11:44:28 AM Referred By: KAY TRINH Confirmed By:JOSE HYDE MD
--- NOTE | 2017-02-21 13:05 | PN ---
[facility] CIWA - CIWA Score Nausea/Vomitin-No Nausea/No Vomiting Muscle Tremors: 4-Moderate,w/Arms Extend Anxiety: 4-Mod. Anxious/Guarded Agitation: 3 Paroxysmal Sweats: No Perspiration Orientation: 0-Oriented Tacttile Disturbances: 0-None Auditory Disturbances: 0-None Visual Disturbances: 0-None Headache: 2-Mild CIWA-Ar Total Score: 13 BHS COWS - Scale Resting Pulse: 0= [place] 80 or Below Sweatin=Flushed/Facial Moisture Restless Observation: 1= Difficult to Sit Still Pupil Size: 1= Pupils >than Normal Bone or Joint Aches: 2= Severe Diffuse Aches Runny Nose/ Eye Tearin= Runny Nose/Eyes GI Upset > 30mins: 1= Stomach Cramp Tremor Observation of Outstretched Hands: 2= Slight Tremor Visible Yawning Observation: 0= None Anxiety or Irritability: 2=Irritable/Anxious Goose Flesh Skin: 0=Smooth Skin COWS Score: 13 S Progress Note (SOAP) Subjective: tremors, interrupted sleep, malaise Objective: 02/21/17 13:05 Vital Signs Temperature 97.9 F 02/21/17 06:00 Pulse Rate 67 02/21/17 06:00 Respiratory Rate 18 02/21/17 06:00 Blood Pressure 123/76 02/21/17 06:00 O2 Sat by Pulse Oximetry (%) Laboratory Last Values WBC 9.5 K/mm3 (4.0-10.0) 02/21/17 07:30 RBC 5.11 M/mm3 (4.00-5.60) 02/21/17 07:30 Hgb 14.0 GM/dL (11.7-16.9) 02/21/17 07:30 Hct 43.1 % (35.4-49) 02/21/17 07:30 MCV 84.3 fl (80-96) 02/21/17 07:30 MCH 27.4 pg (25.7-33.7) 02/21/17 07:30 MCHC 32.5 g/dl (32.0-35.9) 02/21/17 07:30 RDW 15.0 % (11.9-15.9) 02/21/17 07:30 Plt Count 119 K/MM3 (134-434) L 02/21/17 07:30 MPV 10.6 fl (7.5-11.1) 02/21/17 07:30 Sodium 140 mmol/L (136-145) 02/21/17 07:30 Potassium 4.6 mmol/L (3.5-5.1) 02/21/17 07:30 Chloride 104 mmol/L (98-107) 02/21/17 07:30 Carbon Dioxide 29 mmol/L (21-32) 02/21/17 07:30 Anion Gap 7 (8-16) L 02/21/17 07:30 BUN 9 mg/dL (7-18) 02/21/17 07:30 Creatinine 1.0 mg/dL (0.7-1.3) 02/21/17 07:30 Creat Clearance w eGFR > 60 (>60) 02/21/17 07:30 Random Glucose 77 mg/dL (74-106) D 02/21/17 07:30 Calcium 8.5 mg/dL (8.5-10.1) 02/21/17 07:30 Total Bilirubin 0.7 mg/dL (0.2-1.0) D 02/21/17 07:30 AST 101 U/L (15-37) H D 02/21/17 07:30 ALT 122 U/L (12-78) H D 02/21/17 07:30 Alkaline Phosphatase 74 U/L (45-117) 02/21/17 07:30 Total Protein 6.6 g/dl (6.4-8.2) 02/21/17 07:30 Albumin 3.1 g/dl (3.4-5.0) L 02/21/17 07:30 Urine Color Straw 02/20/17 21:45 Urine Appearance Clear 02/20/17 21:45 Urine pH 5.0 (5.0-8.0) 02/20/17 21:45 Ur Specific [place] 1.004 (1.001-1.035) 02/20/17 21:45 Urine Protein Negative (NEGATIVE) 02/20/17 21:45 Urine Glucose (UA) Negative (NEGATIVE) 02/20/17 21:45 Urine Ketones Negative (NEGATIVE) 02/20/17 21:45 Urine Blood Negative (NEGATIVE) 02/20/17 21:45 Urine Nitrite Negative (NEGATIVE) 02/20/17 21:45 Urine Bilirubin Negative (NEGATIVE) 02/20/17 21:45 Urine Urobilinogen Negative mg/dL (0.2-1.0) 02/20/17 21:45 RPR Titer Nonreactive (NONREACTIVE) 02/21/17 07:30 labs reviewed, Plt count 119K/mm3, H/o hep C Assessment: 02/21/17 13:09 withdrawal symptoms Plan: Continue detox, Fluid hydration
[2017-02-21 14:30] LABS: URINE LEUK ESTERASE Negative (NEGATIVE)
[2017-02-21] MEDS: IBUPROFEN 400 MG TABLET (FP) PO PRN (16:58)
[2017-02-21] MEDS: THIAMINE HCL 100 MG TABLET (FP) PO SCH (22:40)
[2017-02-21] MEDS: traZODone HCL 50 MG TABLET (FP) PO SCH (22:40)
[2017-02-22] MEDS: chlordiazePOXIDE HCL 25 MG CAPSULE PO SCH ×3 (06:03→17:25)
[2017-02-22] MEDS: IBUPROFEN 400 MG TABLET (FP) PO PRN ×3 (06:04→22:33)
--- NOTE | 2017-02-22 11:00 | PN ---
[facility] CIWA - CIWA Score Nausea/Vomitin-No Nausea/No Vomiting Muscle Tremors: 3 Anxiety: 4-Mod. Anxious/Guarded Agitation: 3 Paroxysmal Sweats: 3 Orientation: 0-Oriented Tacttile Disturbances: 0-None Auditory Disturbances: 0-None Visual Disturbances: 0-None Headache: 0-None Present CIWA-Ar Total Score: 13 BHS COWS - Scale Resting Pulse: 0= [place] 80 or Below Sweatin=Flushed/Facial Moisture Restless Observation: 1= Difficult to Sit Still Pupil Size: 0= Normal to Room Light Bone or Joint Aches: 2= Severe Diffuse Aches Runny Nose/ Eye Tearin= Nasal Congestion GI Upset > 30mins: 2= Nausea/Diarrhea Tremor Observation of Outstretched Hands: 2= Slight Tremor Visible Yawning Observation: 1= 1-2x During Session Anxiety or Irritability: 2=Irritable/Anxious Goose Flesh Skin: 0=Smooth Skin COWS Score: 13 [facility] Progress Note (SOAP) Subjective: anxiety,tremors,sweating,interrupted sleep,restless Objective: 02/22/17 10:59 Vital Signs - 8 hr 02/22/17 02/22/17 03:30 06:00 Temperature 97.2 F L Pulse Rate 54 L Respiratory 18 18 Rate Blood Pressure 108/62 Laboratory Tests 02/20/17 02/21/17 02/21/17 21:45 07:30 07:30 WBC 9.5 RBC 5.11 Hgb 14.0 Hct 43.1 MCV 84.3 MCH 27.4 MCHC 32.5 RDW 15.0 Plt Count 119 L MPV 10.6 Sodium 140 Potassium 4.6 Chloride 104 Carbon Dioxide 29 Anion Gap 7 L BUN 9 Creatinine 1.0 Creat Clearance w eGFR > 60 Random Glucose 77 D Calcium 8.5 Total Bilirubin 0.7 D AST 101 H D ALT 122 H D Alkaline Phosphatase 74 Total Protein 6.6 Albumin 3.1 L Urine Color Straw Urine Appearance Clear Urine pH 5.0 Ur Specific [place] 1.004 Urine Protein Negative Urine Glucose (UA) Negative Urine Ketones Negative Urine Blood Negative Urine Nitrite Negative Urine Bilirubin Negative Urine Urobilinogen Negative Ur Leukocyte Esterase Negative RPR Titer 02/21/17 07:30 WBC RBC Hgb Hct MCV MCH MCHC RDW Plt Count MPV Sodium Potassium Chloride Carbon Dioxide Anion Gap BUN Creatinine Creat Clearance w eGFR Random Glucose Calcium Total Bilirubin AST ALT Alkaline Phosphatase Total Protein Albumin Urine Color Urine Appearance Urine pH Ur Specific [place] Urine Protein Urine Glucose (UA) Urine Ketones Urine Blood Urine Nitrite Urine Bilirubin Urine Urobilinogen Ur Leukocyte Esterase RPR Titer Nonreactive labs noted Assessment: 02/22/17 10:59 withdrawal sx. Plan: Continue detox
[2017-02-22] MEDS: METHADONE HCL 5 MG TABLET (FOR DETOX USE ONLY) PO SCH (11:23)
[2017-02-22] MEDS: PRENATAL VITAMINS W/ FOLIC ACID TABLET (FP) PO SCH (11:23)
[2017-02-22] MEDS: NICOTINE 14 MG/24 HOURS TOPICAL PATCH TD SCH (11:24)
[2017-02-22] MEDS: chlordiazePOXIDE 5 MG CAPSULE PO SCH (22:31)
[2017-02-22] MEDS: THIAMINE HCL 100 MG TABLET (FP) PO SCH (22:32)
[2017-02-22] MEDS: traZODone HCL 50 MG TABLET (FP) PO SCH (22:32)
[2017-02-23] MEDS: chlordiazePOXIDE 5 MG CAPSULE PO SCH ×2 (05:26→11:33)
[2017-02-23] MEDS: IBUPROFEN 400 MG TABLET (FP) PO PRN (05:27)
[2017-02-23 10:25] VITALS: BP 117/70; PULSE 61; TEMP 97.3
[2017-02-23] MEDS: PRENATAL VITAMINS W/ FOLIC ACID TABLET (FP) PO SCH (11:33)
[2017-02-23] MEDS: METHADONE HCL 5 MG TABLET (FOR DETOX USE ONLY) PO SCH (11:33)
[2017-02-23] MEDS: NICOTINE 14 MG/24 HOURS TOPICAL PATCH TD SCH (11:34)
--- NOTE | 2017-02-23 13:49 | DS ---
[facility] Detox Discharge Summary Admission Date: 02/20/17 Discharge Date: 02/23/17 - History Present History: Alcohol Dependence, Cocaine Dependence, Opioid Dependence Pertinent Past History: Hep C - Physical Exam Results Vital Signs: Vital Signs Temperature 97.3 F L 02/23/17 10:00 Pulse Rate 61 02/23/17 10:00 Respiratory Rate 16 02/23/17 10:00 Blood Pressure 117/70 02/23/17 10:00 O2 Sat by Pulse Oximetry (%) Pertinent Admission Physical Exam Findings: Withdrawal sx. Laboratory Last Values WBC 9.5 K/mm3 (4.0-10.0) 02/21/17 07:30 RBC 5.11 M/mm3 (4.00-5.60) 02/21/17 07:30 Hgb 14.0 GM/dL (11.7-16.9) 02/21/17 07:30 Hct 43.1 % (35.4-49) 02/21/17 07:30 MCV 84.3 fl (80-96) 02/21/17 07:30 MCH 27.4 pg (25.7-33.7) 02/21/17 07:30 MCHC 32.5 g/dl (32.0-35.9) 02/21/17 07:30 RDW 15.0 % (11.9-15.9) 02/21/17 07:30 Plt Count 119 K/MM3 (134-434) L 02/21/17 07:30 MPV 10.6 fl (7.5-11.1) 02/21/17 07:30 Sodium 140 mmol/L (136-145) 02/21/17 07:30 Potassium 4.6 mmol/L (3.5-5.1) 02/21/17 07:30 Chloride 104 mmol/L (98-107) 02/21/17 07:30 Carbon Dioxide 29 mmol/L (21-32) 02/21/17 07:30 Anion Gap 7 (8-16) L 02/21/17 07:30 BUN 9 mg/dL (7-18) 02/21/17 07:30 Creatinine 1.0 mg/dL (0.7-1.3) 02/21/17 07:30 Creat Clearance w eGFR > 60 (>60) 02/21/17 07:30 Random Glucose 77 mg/dL (74-106) D 02/21/17 07:30 Calcium 8.5 mg/dL (8.5-10.1) 02/21/17 07:30 Total Bilirubin 0.7 mg/dL (0.2-1.0) D 02/21/17 07:30 AST 101 U/L (15-37) H D 02/21/17 07:30 ALT 122 U/L (12-78) H D 02/21/17 07:30 Alkaline Phosphatase 74 U/L (45-117) 02/21/17 07:30 Total Protein 6.6 g/dl (6.4-8.2) 02/21/17 07:30 Albumin 3.1 g/dl (3.4-5.0) L 02/21/17 07:30 Urine Color Straw 02/20/17 21:45 Urine Appearance Clear 02/20/17 21:45 Urine pH 5.0 (5.0-8.0) 02/20/17 21:45 Ur Specific [place] 1.004 (1.001-1.035) 02/20/17 21:45 Urine Protein Negative (NEGATIVE) 02/20/17 21:45 Urine Glucose (UA) Negative (NEGATIVE) 02/20/17 21:45 Urine Ketones Negative (NEGATIVE) 02/20/17 21:45 Urine Blood Negative (NEGATIVE) 02/20/17 21:45 Urine Nitrite Negative (NEGATIVE) 02/20/17 21:45 Urine Bilirubin Negative (NEGATIVE) 02/20/17 21:45 Urine Urobilinogen Negative mg/dL (0.2-1.0) 02/20/17 21:45 Ur Leukocyte Esterase Negative (NEGATIVE) 02/20/17 21:45 RPR Titer Nonreactive (NONREACTIVE) 02/21/17 07:30 labs noted - Treatment Patient has Accepted a Rehab Referral to: [facility] - Medication Discharge Medications: Ambulatory Orders Trazodone HCl [Desyrel -] 50 mg PO HS #30 tablet 02/21/17 - Diagnosis (1) Alcohol dependence with uncomplicated withdrawal Current Visit: Yes Status: Chronic (2) Cocaine dependence, uncomplicated Current Visit: Yes Status: Chronic (3) Opioid dependence with withdrawal Current Visit: Yes Status: Chronic (4) Hepatitis C Current Visit: Yes Status: Chronic Qualifiers: Viral hepatitis chronicity: chronic Hepatic coma status: without hepatic coma Qualified Code(s): B18.2 - Chronic viral hepatitis C (5) Drug-induced mood disorder Current Visit: No Status: Acute - AMA Did Patient Leave Against Medical Advice: Yes
[2017-02-23] MEDS ORDERED: chlordiazePOXIDE HCL 10 MG CAPSULE PO SCH (23:00)
[2017-02-24] MEDS ORDERED: METHADONE HCL 10 MG TABLET (FOR DETOX USE ONLY) PO SCH (10:00)
[2017-02-25] MEDS ORDERED: METHADONE HCL 5 MG TABLET (FOR DETOX USE ONLY) PO SCH (06:00)
== END 2017-02-23 01:15 | disposition left against medical advice (07) | DRG 770 ==
LOC: YASAS 13:56 → Y6N 18:48
PROVIDERS: ADMIT Internal Medicine; ATTEND Internal Medicine
PROC: HZ2ZZZZ Detoxification Services for Substance Abuse Treatment (ICD-10-PCS; principal; 2017-02-20)
DX: F11.23 Opioid dependence with withdrawal (principal); F10.230 Alcohol dependence with withdrawal, uncomplicated; F14.20 Cocaine dependence, uncomplicated; F17.210 Nicotine dependence, cigarettes, uncomplicated; F19.24 Other psychoactive substance dependence with psychoactive substance-induced mood disorder; F34.1 Dysthymic disorder; F41.8 Other specified anxiety disorders; G47.00 Insomnia, unspecified; B18.2 Chronic viral hepatitis C
CPT/HCPCS: 36415; 80053; 81003; 85027; 86593; 93005; 93010

== ENCOUNTER 2017-02-20 15:05 | Emergency (ER) | payer OTHER ==
[2017-02-20 15:20] VITALS: BP 128/81; PULSE 85; TEMP 98; BMI 28.8
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
[2017-02-20] MEDS ORDERED: KETOROLAC TROMETHAMINE 60 MG/2 ML VIAL IM ONE (15:51)
[2017-02-20] MEDS ORDERED: KETOROLAC TROMETHAMINE 30 MG/1 ML VIAL ONE (15:53)
== END 2017-02-20 16:25 | disposition home or self-care (01) ==
LOC: JERFT 15:05
PROC: 3E0233Z Introduction of Anti-inflammatory into Muscle, Percutaneous Approach (ICD-10-PCS; principal; 2017-02-20)
DX: M54.5 Low back pain (principal); V59.59XA Passenger in pick-up truck or van injured in collision with other motor vehicles in traffic accident, initial encounter; Y92.488 Other paved roadways as the place of occurrence of the external cause; Y93.89 Activity, other specified; F11.10 Opioid abuse, uncomplicated; F10.10 Alcohol abuse, uncomplicated
CPT/HCPCS: 72100-TC; 99281-25